=== PATIENT | male | born 1930 | race Caucasian/White ===

== ENCOUNTER 2017-11-02 08:31 | Day surgery (SDC) | payer MEDICARE, BC ==
[~2017-11-02] VITALS: Ht 170.2 cm; Wt 74.7 kg
[2017-11-02 08:58] VITALS: BP 161/80
[2017-11-02] MEDS ORDERED: DILT60CA PO (09:01)
[2017-11-02] MEDS ORDERED: ATOR10TA PO (09:01)
[2017-11-02] MEDS ORDERED: ERGO2000 PO (09:01)
[2017-11-02] MEDS ORDERED: RIVA1PAT12 TD (09:01)
[2017-11-02] MEDS ORDERED: DOFE250C4 PO (09:01)
[2017-11-02] MEDS ORDERED: BETA1TAB PO (09:01)
[2017-11-02] MEDS ORDERED: MEMA10TA PO (09:01)
[2017-11-02] MEDS ORDERED: TAMS0.4C2 PO (09:01)
[2017-11-02] MEDS ORDERED: OMEG1CAP6 PO (09:01)
[2017-11-02] MEDS ORDERED: CYAN250013 PO (09:01)
[2017-11-02] MEDS ORDERED: FENTANYL PF 100 MCG/2ML ONE (09:27)
[2017-11-02] MEDS ORDERED: PROPOFOL 10 MG/ML, 20ML ONE (09:44)
[2017-11-02] MEDS ORDERED: EPHEDRINE 50 MG/ML, 1ML ONE (09:44)
[2017-11-02] MEDS ORDERED: SUCCINYLCHOLINE 20 MG/ML, 10ML ONE (09:44)
[2017-11-02] MEDS ORDERED: MEPERIDINE/PF 25MG/0.5ML IVPush PRN (10:30)
[2017-11-02] MEDS ORDERED: hydrALAzine 20 MG/ML, 1ML IV PRN (10:30)
[2017-11-02] MEDS ORDERED: FENTANYL PF 100 MCG/2ML IV PRN (10:30)
[2017-11-02] MEDS ORDERED: ONDANSETRON 2MG/ML, 2ML IVPush PRN (10:30)
[2017-11-02] MEDS ORDERED: HYDROmorphone 1 MG/ML, 1ML IV PRN (10:30)
[2017-11-02] MEDS ORDERED: PROMETHAZINE 25 MG/ML, 1ML IV PRN (10:30)
[2017-11-02] MEDS ORDERED: LABETALOL 5MG/ML, 20ML IV PRN (10:30)
[2017-11-02] MEDS ORDERED: METOCLOPRAMIDE 5 MG/ML, 2ML IV PRN (10:30)
[2017-11-02] MEDS ORDERED: KETOROLAC 30 MG/1 ML IV PRN (10:30)
[2017-11-02] MEDS ORDERED: OXYcodone 5 MG/5 ML ORAL.SOL UDC PO PRN (10:30)
[2017-11-02] MEDS ORDERED: PLEASE ENTER ALLERGIES MC SCH (10:30)
[2017-11-02] MEDS ORDERED: ALBUTEROL SULFATE 2.5 MG/3 ML NPPB PRN (10:30)
[2017-11-02] MEDS ORDERED: OXYcodone/APAP 5/325MG TABLET PO PRN (11:00)
[2017-11-02] MEDS ORDERED: PHENAZOPYRIDINE 200 MG TABLET PO ONE (11:00)
[2017-11-02] MEDS ORDERED: PHENAZOPYRIDINE 200 MG TABLET ONE (11:06)
== END 2017-11-02 13:25 | disposition home or self-care (01) ==
LOC: OUT 08:31
PROVIDERS: ATTEND Urology
DX: C67.9 Malignant neoplasm of bladder, unspecified (principal); N40.0 Benign prostatic hyperplasia without lower urinary tract symptoms; I10 Essential (primary) hypertension; I48.91 Unspecified atrial fibrillation; G47.33 Obstructive sleep apnea (adult) (pediatric); Z88.8 Allergy status to other drugs, medicaments and biological substances
CPT/HCPCS: 52204; 88305; J0330; J2704; J3010

== ENCOUNTER → 2020-09-16 | Outpatient (CLI) | payer MEDICARE ==
[~2020-09-16] MED LIST: ATOR10TA PO; BETA1TAB PO; CHOL10003 PO; CYAN250013 PO; CYAN50003 PO; DILT60CA PO; DOFE125C4 PO; DOFE250C4 PO; DONE10TA56 PO; ERGO2000 PO; ESCI10TA10 PO; EZET10TA70 PO; LAMO25TA5 PO; MAGN125C PO; MEMA10TA PO; OMEG1CAP57 PO; OMEG1CAP6 PO; RIVA1PAT12 TD; ROPI0.254 PO; TAMS0.4C2 PO; THIA100T27 PO
== END | disposition home or self-care (01) ==
LOC: STAR 12:00
PROVIDERS: ATTEND Urology
DX: Z01.818 Encounter for other preprocedural examination (principal); C67.9 Malignant neoplasm of bladder, unspecified; I44.1 Atrioventricular block, second degree; Z20.822 Contact with and (suspected) exposure to COVID-19
CPT/HCPCS: 93005; U0003; U0005

== ENCOUNTER 2020-09-21 08:00 | Outpatient (CLI) | payer MEDICARE ==
[~2020-09-21] VITALS: Ht 170.2 cm; Wt 64.5 kg
== END 2020-09-21 23:59 | disposition home or self-care (01) ==
LOC: OUT 08:00 → EDSTATUS 09-22 16:30
PROVIDERS: ATTEND Urology
DX: Z01.818 Encounter for other preprocedural examination (principal); C67.9 Malignant neoplasm of bladder, unspecified; R94.31 Abnormal electrocardiogram [ECG] [EKG]
CPT/HCPCS: 93005

== ENCOUNTER 2020-10-29 12:03 | Day surgery (SDC) | payer MEDICARE ==
[~2020-10-29] VITALS: Ht 170.2 cm; Wt 71.4 kg
[2020-10-29] MEDS ORDERED: PLEASE ENTER HEIGHT AND WEIGHT MC SCH (12:30)
[2020-10-29 12:37] VITALS: BP 158/79
[2020-10-29] MEDS ORDERED: CHLORHEXIDINE 15 ML UDC PO ONE (13:00)
[2020-10-29] MEDS ORDERED: GEMCITABINE HCL 1,000 MG in SODIUM CHLORIDE 0.9% 23.7 ML IS ONE (13:00)
[2020-10-29] MEDS ORDERED: LACTATED RINGERS 1,000 ML IV SCH (13:00)
[2020-10-29] MEDS ORDERED: FENTANYL PF 100 MCG/2ML ONE ×2 (14:02→17:24)
[2020-10-29] MEDS ORDERED: MEPERIDINE/PF 25MG/0.5ML IVPush PRN (14:30)
[2020-10-29] MEDS ORDERED: ONDANSETRON 2MG/ML, 2ML IVPush PRN (14:30)
[2020-10-29] MEDS ORDERED: OXYcodone 5 MG/5 ML ORAL.SOL UDC PO PRN (14:30)
[2020-10-29] MEDS ORDERED: HYDROcodone/APAP 7.5-325MG/15ML UDC PO PRN (14:30)
[2020-10-29] MEDS ORDERED: PROMETHAZINE 25 MG/ML, 1ML IVPush PRN (14:30)
[2020-10-29] MEDS ORDERED: HYDROmorphone 1 MG/ML, 1ML INJ IVPush PRN (14:30)
[2020-10-29] MEDS ORDERED: EPHEDRINE 50 MG/ML, 1ML ONE (15:51)
[2020-10-29] MEDS ORDERED: SUCCINYLCHOLINE 20 MG/ML, 10ML ONE (16:34)
[2020-10-29] MEDS ORDERED: PROPOFOL 10 MG/ML, 20ML ONE (16:34)
[2020-10-29] MEDS ORDERED: CEFAZOLIN 1,000 MG ONE (16:34)
[2020-10-29] MEDS ORDERED: NEOSTIGMINE 1 MG/ML, 10ML ONE (16:34)
[2020-10-29] MEDS ORDERED: ONDANSETRON 2MG/ML, 2ML ONE (16:34)
[2020-10-29] MEDS ORDERED: DEXAMETHASONE 4 MG/ML, 1ML ONE (16:34)
[2020-10-29] MEDS ORDERED: GLYCOPYRROLATE 0.2MG/1ML, 5ML ONE (16:34)
[2020-10-29] MEDS ORDERED: ROCURONIUM 10MG/ML,5ML ONE (16:34)
[2020-10-29] MEDS ORDERED: ONDANSETRON 2MG/ML, 2ML IV PRN (17:00)
[2020-10-29] MEDS ORDERED: HYDROcodone/APAP 5/325 TABLET PO PRN (17:00)
[2020-10-29] MEDS: FENTANYL PF 100 MCG/2ML IV PRN ×2 (17:25→17:30)
== END 2020-10-29 21:00 | disposition home or self-care (01) ==
LOC: OUT 12:03
PROVIDERS: ATTEND Urology
DX: C67.4 Malignant neoplasm of posterior wall of bladder (principal); J43.9 Emphysema, unspecified; I12.9 Hypertensive chronic kidney disease with stage 1 through stage 4 chronic kidney disease, or unspecified chronic kidney disease; N18.9 Chronic kidney disease, unspecified; G47.33 Obstructive sleep apnea (adult) (pediatric); E78.5 Hyperlipidemia, unspecified; I48.91 Unspecified atrial fibrillation; F03.90 Unspecified dementia, unspecified severity, without behavioral disturbance, psychotic disturbance, mood disturbance, and anxiety; Z87.891 Personal history of nicotine dependence; Z98.890 Other specified postprocedural states; Z79.899 Other long term (current) drug therapy; Z72.89 Other problems related to lifestyle
CPT/HCPCS: 51720; 52240; 88307; J0330; J0690; J1100; J2405; J2704; J2710; J3010; J9201